=== PATIENT | female | born 1980 | race Caucasian/White ===

== ENCOUNTER 2023-06-28 18:02 | Emergency (ER) | payer SELFPAY ==
[2023-06-28 18:02] VITALS: BP 147/91; PULSE 104; RESP 12; TEMP 36.8; O2SAT 97
--- NOTE | 2023-06-28 18:10 | ED.BACK ---
HPI - Back Pain/Injury General Chief Complaint: Dental/Oral Stated Complaint: right upper dental abscess Time Seen by Provider: 06/28/23 18:10 Source: patient Mode of arrival: ambulatory Limitations: no limitations History of Present Illness HPI Narrative: Patient is a 42-year-old female with right upper gum and dental pain. This has been going on for the past few days. She cannot get into a dentist before she goes to a vacation this week. Pertinent past history: other ( Right upper gum dental pain) Onset (ago): day(s) (2) Timing: constant Severity: moderate Pain scale (0-10): 6 Similar Symptoms Previously: Yes Quality: sharp Exacerbating factors: none Relieving factors: none Associated symptoms: denies other symptoms Related Data Allergies Allergy/AdvReac Type Severity Reaction Status Date / Time No Known Allergies Allergy Unknown Verified 06/28/23 18:18 Exam Const: General: healthy appearing Nutritional Appearance: well nourished Orientation/consciousness: patient oriented x3 HENMT: Head: normal to inspection Ears: external ears normal Face/Nose/Sinus: Normal external nose present Other: right upper gums have a red and irritated gingival area of gingivitis above the tooth without definite mass of abscess; there is an area of irritation and swelling without abscess tooth 5 Through 7 of the gingiva are inflamed. Eyes: Conjunctivae: conjunctivae normal Pupils: Equal, round and reactive pupils present EOM: EOMs intact bilaterally Neck: Neck: normal visual inspection Chest: Chest palpation & inspection: normal inspection of the chest Resp: Effort & Inspection: normal respiratory effort and not labored Auscultation: clear to auscultation bilaterally and no crackles Cardio: Rate: regular rate Rhythm: regular rhythm Heart sounds: no murmurs GI: Inspection: non-distended GI Palp: Yes Soft to palpation, No Tenderness to palpation present (GI) and No Guarding due to palpation present (GI) Auscultation: normal bowel sounds : General: Yes bladder normal to palpation Back/Spine/Pelvis: Back: no CVA tenderness Skin: General skin exam: normal color Rashes: no rashes Wounds: no wounds Neuro: General: patient oriented x3 Cranial nerves: Yes Nystagmus not present Speech: normal speech Extrem: General: normal to inspection Psych: Mental Status: mental status grossly normal Affect: normal affect Attitude: cooperative Course Vital Signs Vital signs: Vital Signs Temperature 36.8 C 06/28/23 18:02 Pulse Rate 104 H 06/28/23 18:02 Respiratory Rate 12 06/28/23 18:02 Blood Pressure 147/91 H 06/28/23 18:02 Pulse Oximetry 97 06/28/23 18:02 Oxygen Delivery Room Air 06/28/23 18:02 Temperature 36.8 C 06/28/23 18:02 Pulse Rate 104 H 06/28/23 18:02 Respiratory Rate 12 06/28/23 18:02 Blood Pressure 147/91 H 06/28/23 18:02 Pulse Oximetry 97 06/28/23 18:02 Oxygen Delivery Room Air 06/28/23 18:02 MDM - Back Pain/Injury MDM Narrative Medical decision making narrative: right upper jaw inflammation of the gingiva. Patient has inflamed gums. Toradol shot given. Augmentin given. Patient discharged with Augmentin. She will be given information for a dentist as soon as possible. The chart was accidentally pushed for back pain but this is a dental /Maxilla pain. Discharge Plan Discharge Clinical Impression: Maxilla pain, Gingivitis Patient Disposition: Home, Self-Care Condition: Stable Instructions: Antibiotic Form, Toothache (ED) Additional Instructions: Please see a dentist as soon as possible. Prescriptions: New amoxicillin-pot clavulanate [Augmentin] 500-125 mg tablet 1 tablet PO BID 10 Days Qty: 20 0RF Follow-up/Referrals: Harrison Knutson MD [Primary Care Provider] - Time of Disposition: 18:37
[2023-06-28] MEDS: AMOXICILLIN/CLAVULANATE K 875-125 MG TAB 1 TABLET PO (18:35)
[2023-06-28] MEDS: KETOROLAC (*BKC) 60 MG/2 ML VIAL IM (18:36)
== END 2023-06-28 18:41 | disposition home or self-care (01) ==
PROVIDERS: Emergency Provider Emergency Medicine; PCP Family Medicine
DX: K05.10 Chronic gingivitis, plaque induced (principal); R68.84 Jaw pain
CPT/HCPCS: 96372; 99283; A9270; J1885